=== PATIENT | female | born 1990 | race Caucasian/White ===

== ENCOUNTER 2019-01-08 20:30 | Inpatient (IN) | payer OTHER ==
[~2019-01-08] VITALS: Ht 160 cm; Wt 68.5 kg
[2019-01-08] MEDS ORDERED: NASAL MIST126 ML (21:49)
[2019-01-08] MEDS ORDERED: PRENATABS RX T1 EACH PO (21:49)
== END 2019-01-12 13:45 | DRG 788 ==
LOC: LDR 20:30 → OB/GYN 01-09 17:37
PROVIDERS: ADMIT Obstetrics & Gynecology
PROC: 4A1HXCZ Monitoring of Products of Conception, Cardiac Rate, External Approach (ICD-10-PCS; 2019-01-08)
PROC: 3E033VJ Introduction of Other Hormone into Peripheral Vein, Percutaneous Approach (ICD-10-PCS; 2019-01-09)
PROC: 4A033R1 Measurement of Arterial Saturation, Peripheral, Percutaneous Approach (ICD-10-PCS; 2019-01-09)
PROC: 10D00Z1 Extraction of Products of Conception, Low, Open Approach (ICD-10-PCS; principal; 2019-01-09 13:00)
DX: O61.0 Failed medical induction of labor (principal); O33.8 Maternal care for disproportion of other origin; O13.3 Gestational [pregnancy-induced] hypertension without significant proteinuria, third trimester; Z3A.37 37 weeks gestation of pregnancy; Z37.0 Single live birth